=== PATIENT | female | born 1980 | race Two or more races ===

== ENCOUNTER 2018-01-28 02:32 | Inpatient (IN) | payer OTHER ==
[~2018-01-28] VITALS: Ht 170.2 cm; Wt 2.3 kg
[2018-01-28] MEDS ORDERED: PRENATABS RX T1 EACH PO (03:55)
[2018-01-28] MEDS ORDERED: FE C TABLET1 EACH PO (03:56)
== END 2018-01-31 10:22 | DRG 766 ==
LOC: LDR 02:32 → OB/GYN 02:32
PROVIDERS: Obstetrics & Gynecology
PROC: 4A1HXCZ Monitoring of Products of Conception, Cardiac Rate, External Approach (ICD-10-PCS; 2018-01-28)
PROC: 10D00Z1 Extraction of Products of Conception, Low, Open Approach (ICD-10-PCS; principal; 2018-01-28 03:30)
DX: O69.81X0 Labor and delivery complicated by cord around neck, without compression, not applicable or unspecified (principal); O99.824 Streptococcus B carrier state complicating childbirth; Z3A.36 36 weeks gestation of pregnancy; Z37.0 Single live birth; O09.523 Supervision of elderly multigravida, third trimester

== ENCOUNTER 2018-06-10 22:28 | Emergency (ER) | payer OTHER ==
[~2018-06-10] VITALS: Ht 170.2 cm; Wt 59.0 kg
[~2018-06-10 22:28] MED LIST: FE C TABLET1 EACH PO; PRENATABS RX T1 EACH PO
== END 2018-06-11 05:30 ==
LOC: ER 22:28
DX: O20.0 Threatened abortion (principal)

== ENCOUNTER 2018-12-17 10:26 | Emergency (ER) | payer OTHER ==
[~2018-12-17] VITALS: Ht 170.2 cm; Wt 68.0 kg
[2018-12-17] MEDS ORDERED: MUCINEX DM ER1 EACH PO (14:16)
[2018-12-17] MEDS ORDERED: EMERGEN-C 1,01000 MG PO (14:16)
== END 2018-12-17 14:27 | disposition home or self-care (01) ==
LOC: ER 10:26
DX: B34.9 Viral infection, unspecified (principal); R06.02 Shortness of breath

== ENCOUNTER 2019-07-03 12:49 | Inpatient (IN) | payer OTHER ==
[~2019-07-03] VITALS: Ht 170.2 cm; Wt 73.5 kg
[~2019-07-03 12:49] MED LIST changes: +EMERGEN-C 1,01000 MG PO; +MUCINEX DM ER1 EACH PO
[2019-07-10] MEDS ORDERED: PRENATAL TABLE1 EAC1 PO (11:20)
[2019-07-10] MEDS ORDERED: IRON325 MG PO (11:21)
== END 2019-07-13 14:34 | disposition home or self-care (01) | DRG 785 ==
LOC: OB/GYN 07-10 10:45 → LDR 07-10 10:45 → O/R 07-10 15:03 → OB/GYN 07-10 15:21
PROVIDERS: ADMIT Obstetrics & Gynecology Maternal & Fetal Medicine
PROC: 0UL70ZZ Occlusion of Bilateral Fallopian Tubes, Open Approach (ICD-10-PCS; 2019-07-10)
PROC: 4A1HXCZ Monitoring of Products of Conception, Cardiac Rate, External Approach (ICD-10-PCS; 2019-07-10)
PROC: 10D00Z1 Extraction of Products of Conception, Low, Open Approach (ICD-10-PCS; principal; 2019-07-10 12:00)
DX: O82 Encounter for cesarean delivery without indication (principal); Z3A.36 36 weeks gestation of pregnancy; Z37.0 Single live birth; Z30.2 Encounter for sterilization

== ENCOUNTER 2021-04-17 11:34 | Emergency (ER) | payer OTHER ==
[~2021-04-17] VITALS: Ht 170.2 cm; Wt 72.6 kg
[~2021-04-17 11:34] MED LIST changes: +IRON325 MG PO; +PRENATAL TABLE1 EAC1 PO
== END 2021-04-17 13:49 | disposition home or self-care (01) ==
LOC: ER 11:34
DX: S99.911A Unspecified injury of right ankle, initial encounter (principal); W10.8XXA Fall (on) (from) other stairs and steps, initial encounter; Y99.0 Civilian activity done for income or pay

== ENCOUNTER 2021-06-30 20:42 | Emergency (ER) | payer OTHER ==
[~2021-06-30] VITALS: Ht 162.6 cm; Wt 54.0 kg
[2021-06-30] MEDS ORDERED: BACTRIM DS TAB1 EACH PO (22:01)
== END 2021-06-30 22:03 | disposition home or self-care (01) ==
LOC: ER 20:42
DX: N39.0 Urinary tract infection, site not specified (principal)

== ENCOUNTER 2021-07-04 14:48 | Emergency (ER) | payer OTHER ==
[~2021-07-04] VITALS: Ht 170.2 cm; Wt 72.6 kg
[~2021-07-04 14:48] MED LIST changes: +BACTRIM DS TAB1 EACH PO
== END 2021-07-04 18:56 | disposition home or self-care (01) ==
LOC: ER 14:48
DX: R42 Dizziness and giddiness (principal); R47.81 Slurred speech

== ENCOUNTER 2021-07-19 00:10 | Emergency (ER) | payer OTHER ==
[~2021-07-19] VITALS: Ht 170.2 cm; Wt 65.8 kg
[2021-07-19] MEDS ORDERED: PROVENTIL HFA6.7 GM IH (05:26)
[2021-07-19] MEDS ORDERED: ZYNCOF 20-400120 ML PO (05:26)
== END 2021-07-19 05:31 ==
LOC: ER 00:10
DX: U07.1 COVID-19 (principal)